=== PATIENT | female | born 1980 | race Hispanic/Latino ===

== ENCOUNTER 2023-12-14 23:32 | Emergency (ER) | payer SELFPAY ==
[2023-12-14 23:46] VITALS: BP 162/111; PULSE 94; RESP 20; TEMP 97.1; O2SAT 99
[2023-12-15] MEDS ORDERED: NS 1000ML 1,000 ML ONE (00:04)
[2023-12-15] MEDS ORDERED: ZOFRAN ONE (00:09)
[2023-12-15] MEDS: NS 1000ML 1,000 ML IV STA (00:11)
[2023-12-15 00:23] LABS: HEMATOCRIT(ML) 32.5 % (36.0-46.0); HEMOGLOBIN 9.4 g/dL (12.0-15.0); MEAN CORP HGB 19.5 pg (26-34); MEAN CORP HGB CONCENTRATION 28.9 g/dL (33-36.5); MEAN CORP VOLUME 67.4 fL (78-100); RED BLOOD CELL 4.82 10^6/uL (4.00-5.20); RED CELL DISTRIBUTION WIDTH 24.8 % (11.5-14.5); WHITE BLOOD CELL 7.8 10^3/uL (4.5-11.0)
[2023-12-15] MEDS: ZOFRAN IV STA (00:28)
[2023-12-15 00:30] VITALS: BP 129/95; PULSE 92; RESP 20; TEMP 97.1; O2SAT 99
[2023-12-15 00:30] LABS: ALBUMIN(ML) 3.5 g/dL (3.4-5.0); ALBUMIN/GLOBULIN RATIO 0.729; ANION GAP 23.4; BUN/CREATININE RATIO 18.75 (10.0-20.0); CALCIUM 9.1 mg/dL (8.4-10.5); CARBON DIOXIDE 15.9 mmol/L (20.0-32); CREATININE SERUM 0.96 mg/dL (0.59-1.40); EST GFR, NON-AA 63.1 (>/=60); POTASSIUM 3.3 mmol/L (3.6-5.2)
[2023-12-15 00:42] LABS: PLATELET COUNT 308 10^3/uL (150-400)
[2023-12-15 01:03] VITALS: BP 125/97; PULSE 89; RESP 20; TEMP 97.1; O2SAT 99
== END 2023-12-15 01:08 | disposition home or self-care (01) ==
LOC: EDBD 23:32 → ER 23:32
DX: F10.129 Alcohol abuse with intoxication, unspecified (principal); F41.9 Anxiety disorder, unspecified; R11.2 Nausea with vomiting, unspecified
CPT/HCPCS: 99283; 80053; 85027; 36415; 82077; 96374; 96361; J7030; J2405